=== PATIENT | female | born 1950 | race Two or more races ===

== ENCOUNTER → 2021-12-04 | Outpatient (CLI) | payer MEDICARE ==
[~2021-12-04] MED LIST: AMIO200T33 PO; APIX5TAB PO; ATOR10TA52 PO; DIGO0.12 PO; DIVA250T4 PO; ESCI10TA PO; FURO1TAB31 PO; MELA5CAP PO; OLME20TA53 PO; POTA1TAB61 PO
[2021-12-04 11:17] VITALS: BP 135/64
[2021-12-04 11:36] VITALS: BP 116/56
[2021-12-04 15:51] LABS: Basophils # (auto) 0.1 10 ^3/uL (0-0.2); Basophils % (auto) 1.3 % (0.0-2.0); Eosinophils # (auto) 0.1 10 ^3/uL (0-0.8); Eosinophils % (auto) 2.2 % (0.0-7.0); Hemoglobin 13.1 g/dL (12.2-16.2); Lymphocytes # (auto) 0.7 10 ^3/uL (0.4-5.4); Lymphocytes % (auto) 13.1 % (10.0-50.0); Mean Corpuscular Hemoglobin 28.7 pg (28.0-32.0); Mean Corpuscular Hgb Conc. 31.1 g/dL (32.0-36.0); Mean Corpuscular Volume 92.2 fL (80.0-100.0); Monocytes # (auto) 0.7 10 ^3/uL (0-1.3); Monocytes % (auto) 11.7 % (0.0-12.0); Neutrophils # (auto) 4.1 10 ^3/uL (1.6-8.6); Neutrophils % (auto) 71.7 % (37.0-80.0); Nucleated Red Blood Cells % 0.1 %; Red Blood Cells 4.56 10^6/uL (4.0-5.20); Red Cell Distribution Width 16.7 % (11.8-14.3); White Blood Cell 5.7 10^3/uL (4.4-10.8)
[2021-12-04 16:01] LABS: BUN/Creatinine Ratio 11.7; Potassium 4.5 mmol/L (3.5-5.1)
[2021-12-04 16:55] LABS: INR 1.05 (0.9-1.15); Partial Thromboplastin Time 29.4 sec (23.6-33.0)
== END | disposition home or self-care (01) ==
LOC: Rad HDHVI 11:02
PROVIDERS: ATTEND Internal Medicine Cardiovascular Disease
DX: R60.9 Edema, unspecified (principal); I48.20 Chronic atrial fibrillation, unspecified; I10 Essential (primary) hypertension; Z01.812 Encounter for preprocedural laboratory examination
CPT/HCPCS: 36415; 71046; 80048; 85025; 85610; 85730; 93005; G0463

== ENCOUNTER 2021-12-06 08:26 | Day surgery (SDC) | payer MEDICARE ==
[~2021-12-06] VITALS: Ht 165.1 cm; Wt 56.2 kg
[2021-12-06] MEDS ORDERED: MIDAZOLAM HCL 2MG/2ML 2ml VIAL (1mg/ml) ONE (10:54)
[2021-12-06] MEDS ORDERED: ANGIOMAX 250 MG VIAL IV ONE (10:54)
[2021-12-06] MEDS ORDERED: SODIUM CHL 0.9% 0 ML ONE (10:54)
[2021-12-06] MEDS ORDERED: fentaNYL CITRATE 100 MCG/2 ML VL ONE (10:54)
== END 2021-12-06 13:58 | disposition home or self-care (01) ==
LOC: CATH 08:26
PROVIDERS: ATTEND Internal Medicine Cardiovascular Disease
DX: R94.39 Abnormal result of other cardiovascular function study (principal); I25.10 Atherosclerotic heart disease of native coronary artery without angina pectoris; I10 Essential (primary) hypertension; E11.42 Type 2 diabetes mellitus with diabetic polyneuropathy; E11.21 Type 2 diabetes mellitus with diabetic nephropathy; E11.51 Type 2 diabetes mellitus with diabetic peripheral angiopathy without gangrene; J44.9 Chronic obstructive pulmonary disease, unspecified; Z82.49 Family history of ischemic heart disease and other diseases of the circulatory system; Z87.891 Personal history of nicotine dependence; Z20.822 Contact with and (suspected) exposure to COVID-19
CPT/HCPCS: 75736; 93456; 93571; C1751; C1760; C1894; J1644; J2001; J2250; J3010; Q9967; U0003; 99152; 99153

== ENCOUNTER → 2021-12-27 | Outpatient (CLI) | payer MEDICARE ==
[~2021-12-27] VITALS: Ht 165.1 cm; Wt 56.2 kg
[~2021-12-27] MED LIST changes: +ADENOSINE 47 MG in GIVE UN-DILUTED 0 ML IV ONE; +ADENOSINE 90 MG/30 ML INJ IV ONE
== END | disposition home or self-care (01) ==
LOC: Rad HDHVI 09:16
PROVIDERS: ATTEND Internal Medicine Cardiovascular Disease
DX: E11.9 Type 2 diabetes mellitus without complications (principal); E78.00 Pure hypercholesterolemia, unspecified
CPT/HCPCS: 78452; 82962; 93005; 96374; 96375; A9500; J0153